=== PATIENT | male | born 1975 ===

== ENCOUNTER 2018-01-27 03:23 | Emergency (ER) | payer OTHER ==
[2018-01-27] MEDS ORDERED: Sodium Chloride 0.9% 1,000 ML IV STA (03:54)
[2018-01-27] MEDS ORDERED: Sodium Chloride 0.9% 1,000 ML ONE (04:23)
--- NOTE | 2018-01-27 04:41 | C.PDOC ---
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 Patient states today he woke up with pain to his LLQ area and while trying to sit up he felt a pop to his left ribs. Patient states he has prior history of fractured ribs in the past. Patient denies trauma, injury, fall, vomit, diarrhea, dysuria, hematuria. (Kelly Lange) <Lety Thacker - Last Filed: 01/27/18 04:37> History Per: Patient History/Exam Limitations: no limitations Onset/Duration Of Symptoms: Days Current Symptoms Are (Timing): Still Present Location Of Pain/Discomfort: LLQ Radiation Of Pain To:: Chest Quality Of Discomfort: "Pain" Associated Symptoms: denies: Nausea, Vomiting, Diarrhea Exacerbating Factors: None Alleviating Factors: None Recent travel outside of the [place]: No Additional History Per: Patient <Kelly Lange - Last Filed: 01/27/18 06:12> Time Seen by Provider: 01/27/18 03:38 Chief Complaint (Nursing): Rib Injury Past Medical History - Medical History PMH: Kidney Stones - Social History Hx Alcohol Use: Yes Hx Substance Use: No <Lety Thacker - Last Filed: 01/27/18 04:37> Reviewed: Historical Data, Nursing Documentation, Vital Signs - Medical History Other PMH: brittle bone disease Surgical History: No Surg Hx Family History: States: Unknown Family Hx - Social History Hx Tobacco Use: No Hx Alcohol Use: Yes Hx Substance Use: No <Kelly Lange - Last Filed: 01/27/18 06:12> Vital Signs: Last Vital Signs Temp 97.9 F 01/27/18 03:25 Pulse 81 01/27/18 03:25 Resp 22 01/27/18 03:25 BP 151/98 H 01/27/18 03:25 Pulse Ox 97 01/27/18 04:41 Review Of Systems Constitutional: Negative for: Fever, Chills Eyes: Negative for: Vision Change Cardiovascular: Positive for: Chest Pain. Negative for: Palpitations Respiratory: Negative for: Cough, Shortness of Breath Gastrointestinal: Negative for: Nausea, Vomiting, Abdominal Pain Skin: Negative for: Rash <Kelly Lange - Last Filed: 01/27/18 06:12> Physical Exam - Physical Exam Appears: Non-toxic, No Acute Distress Skin: Normal Color, Warm, Dry Head: Atraumatic, Normacephalic Eye(s): bilateral: Normal Inspection Oral Mucosa: Moist Neck: Normal ROM, No Midline Cervical Tenderness, Supple Chest: Symmetrical, Tenderness (left sided ribs), Other (no crepitus, ecchymosis ) Cardiovascular: Rhythm Regular Respiratory: Normal Breath Sounds, No Rales, No Rhonchi, No Wheezing Gastrointestinal/Abdominal: Bowel Sounds (active), Soft, Tenderness (LLQ), No Guarding, No Rebound, Other (obese) Back: No CVA Tenderness Extremity: Normal ROM, No Tenderness, No Swelling Neurological/Psych: Oriented x3, Normal Speech Gait: Steady <Kelly Lange - Last Filed: 01/27/18 06:12> ED Course And Treatment O2 Sat by Pulse Oximetry: 97 <Lety Thacker - Last Filed: 01/27/18 04:37> - Laboratory Results Result Diagrams: 01/27/18 04:39 01/27/18 04:39 O2 Sat by Pulse Oximetry: 97 (ON RA) Pulse Ox Interpretation: Normal - Radiology CXR: Interpreted by Me, Viewed By Me CXR Interpretation: Yes: Fracture (left ribvs 5 and 6. not sure if old or new). No: No Acute Disease, Pnemothorax - Other Rad Abdominal X-Ray X-Ray: Interpreted by Me, Viewed By Me Interpretation: No acute pathologies Progress Note: Plan: - Labs. - Abdominal X-Ray. - CXR. - IV fluids. - Toradol 30 mg IVP. - UA. Patient is sleeping comfortably , UA came back and showed hematuria. Patient refused to hace a CT scan done due to having multiple of them done in the past year. Patient states he always passes his stones and prefers to wait it out. <Kelly Lange - Last Filed: 01/27/18 06:12> Disposition <Lety Thacker - Last Filed: 01/27/18 04:37> Counseled Patient/Family Regarding: Diagnosis, Need For Followup, Rx Given - Disposition Disposition Time: 05:45 <Kelly Lange - Last Filed: 01/27/18 06:12> - Disposition Referrals: Robert Kline MD [Staff Provider] - Disposition: HOME/ ROUTINE Condition: STABLE Additional Instructions: Please follow up with your urologist or referred Take meds as directed/ Increase PO fluids Do breathing exercises Return to ER if severe pain to chest or abdomen, SOB, vomiting, fever or worse Prescriptions: Acetaminophen/Codeine [Tylenol/Codeine 300 MG/30 MG] 1 ea PO Q6 PRN #7 tab PRN Reason: Pain, Moderate (4-7) Ibuprofen [Motrin Tab] 800 mg PO QID #20 tab Tamsulosin [Flomax] 0.4 mg PO DAILY #7 cap Instructions: Rib Fracture (DC), Renal Colic (DC) Forms: [employer] (Frisian) - Clinical Impression Clinical Impression: Left rib fracture, Renal colic on left side <Lety Thacker - Last Filed: 01/27/18 04:37> - PA / SALES AND PRODUCTION MANAGER / Resident Statement / has reviewed & agrees with the documentation as recorded. - Scribe Statement The provider has reviewed the documentation as recorded by the Scribe <Kelly Lange - Last Filed: 01/27/18 06:12> - Scribe Statement Neeraj Zamora All medical record entries made by the Scribe were at my direction and personally dictated by me. I have reviewed the chart and agree that the record accurately reflects my personal performance of the history, physical exam, medical decision making, and the department course for this patient. I have also personally directed, reviewed, and agree with the discharge instructions and disposition. (Kelly Lange)
[2018-01-27 04:42] LABS: BASO # 0.1 K/uL (0.0-0.2); BASO % 0.9 % (0.0-2.0); EOS # 0.2 K/uL (0.0-0.7); EOS % 2.6 % (0.0-4.0); HEMOGLOBIN 13.1 g/dL (12.0-18.0); LYMPH # 2.8 K/uL (1.0-4.3); LYMPH % 43.6 % (20.0-40.0); MEAN CELL VOLUME 78.2 fL (80.0-94.0); MEAN CORPUSCULAR HEMOGLOBIN 25.4 pg (27.0-31.0); MEAN CORPUSCULAR HGB CONC 32.5 g/dL (33.0-37.0); MEAN PLATELET VOLUME 8.8 fL (7.2-11.7); MONO # 0.6 K/uL (0.0-0.8); MONO % 10.1 % (0.0-10.0); NEUT # 2.7 K/uL (1.8-7.0); NEUT % 42.8 % (50.0-75.0); NRBC % 0.1 % (0.0-2.0); RBC 5.15 Mil/uL (4.40-5.90); RED CELL DISTRIBUTION WIDTH 15.1 % (11.5-14.5); WHITE BLOOD COUNT 6.3 K/uL (4.8-10.8)
[2018-01-27 04:51] LABS: SQUAMOUS EPITHIAL < 1 /hpf (0-5); URINE BILIRUBIN NEGATIVE (NEGATIVE); URINE BLOOD 3+ (NEGATIVE); URINE CLARITY Hazy (Clear); URINE COLOR Yellow (YELLOW); URINE GLUCOSE (UA) NORMAL (Normal); URINE LEUKOCYTE ESTERASE NEG Leu/uL (Negative); URINE PROTEIN NEGATIVE (NEGATIVE); URINE UROBILINOGEN NORMAL mg/dL (0.2-1.0)
[2018-01-27 04:57] LABS: ALB/GLOB RATIO 1.1 (1.0-2.1); ALBUMIN 3.9 g/dL (3.5-5.0); ALT/SGPT 18 U/L (21-72); AST/SGOT 20 U/L (17-59); BLOOD UREA NITROGEN 16 mg/dL (9-20); CALCIUM 8.7 mg/dl (8.6-10.4); GFR AFRICAN-AMERICAN > 60; GFR NON-AFRICAN AMERICAN > 60
[2018-01-27 06:02] VITALS: BP 106/73; PULSE 59; RESP 19; TEMP 97.7
[2018-01-27 06:12] VITALS: O2SAT 97
--- NOTE | 2018-01-27 09:45 | RAD ---
HISTORY: pain to LLQ, left back. h/o kidney stones COMPARISON: No prior. FINDINGS: BOWEL: Normal. No obstruction. No free air. BONES: Minor degenerative osteoarthritis both hip joints OTHER FINDINGS: Tiny at radiopaque density overlying left upper/mid abdomen could represent bowel related artifact or tiny renal calcification not excluded. Metallic clips left upper quadrant of the abdomen. There is also small metallic clip overlying the left aspect of the sacrum may have fallen into this location. IMPRESSION: No evidence acute mechanical bowel obstruction. Questionable artifact versus tiny calcification overlying left lateral upper/ mid abdomen
--- NOTE | 2018-01-27 10:19 | RAD ---
PROCEDURE: Radiographs of the Chest and Left Ribs. HISTORY: History parietal bone disease. [facility]ard pof in right rib area COMPARISON: None available. TECHNIQUE: Frontal radiograph of the chest and multiple oblique radiographs of the left ribs were obtained. FINDINGS: LEFT RIBS: No there appears to be old healed fracture deformity of the left posterior 6th and possibly left posterior 7th ribs. Note that the lower ribs are poorly seen due to the body habitus and technique. Consider followup CT scan chest if further evaluation is required. LUNGS: Clear. PLEURA: No pneumothorax or pleural fluid. CARDIOVASCULAR: Normal sized heart. No pulmonary vascular congestion. OTHER FINDINGS: Metallic clips left upper quadrant of the abdomen. IMPRESSION: There appears to be old fracture deformity left 6th and possibly new left posterior 7th rib.
== END 2018-01-27 06:03 | disposition home or self-care (01) ==
LOC: C.ER 03:23
DX: S22.32XA Fracture of one rib, left side, initial encounter for closed fracture (principal); X58.XXXA Exposure to other specified factors, initial encounter; N23 Unspecified renal colic
CPT/HCPCS: 71101; 74018; 80053; 81001; 85025; 96374; 99285; J1885; J7040